=== PATIENT | male | born 1995 | race American Indian/Alaskan Native ===

== ENCOUNTER 2020-03-25 17:43 | Emergency (ER) | payer SELFPAY ==
--- NOTE | 2020-03-25 20:05 | Emergency Department Report ---
Eye Injury/Foreign Body - HPI Duration: 5 Days Eye Location: Right Severity: Mild Tetanus Status: Up to Date Eye Symptoms: Eye Pain: Yes, Eye Redness: Yes, Recalls Injury: No (Possible injury versus infection unsure occurred about 5 days ago severe pain redness swelling scant discharge of unknown), Photophobia: No ED Review of Systems ROS: Stated complaint: RT EYE DISCOMFORT Other details as noted in HPI Comment: All other systems reviewed and negative ED Past Medical Hx - Past Medical History Previous Medical History?: No - Surgical History Past Surgical History?: No - Medications Home Medications: Home Medications Medication Instructions Recorded Confirmed Last Taken Type Tobramycin [Tobrex] 1 drop OS Q6HR #1 bottle 03/25/20 Unknown Rx Eye Injury Exam - Exam General: Vital signs noted. No distress. Alert and acting appropriately. - Procedure Description Procedures done: The area was irrigated with saline and tetracaine was placed to the cotton Q-tip was utilized to remove the form of foreign body with no limitation there is some vague residual scarring to the region no obvious rust ring - Eye Procedure Alcaine Drops Administered: Yes Eye FB Removal: removal w/ cotton swab Eye Irrigated w/ Saline (ccs): 40 Critical care attestation.: If time is entered above; I have spent that time in minutes in the direct care of this critically ill patient, excluding procedure time. ED Disposition Clinical Impression: Foreign body, eye, Corneal abrasion, Red eye Disposition: DC-01 TO HOME OR SELFCARE Is pt being admited?: No Does the pt Need Aspirin: No Condition: Stable Instructions: Corneal Abrasion Prescriptions: Tobramycin [Tobrex] 1 drop OS Q6HR #1 bottle Referrals: [facility] [Provider Group] - 3-5 Days [facility] [Provider Group] - 3-5 Days ED Eye Prob EXAM - General General appearance: alert, in no apparent distress Limitations: No Limitations Head exam: Positive: normal inspection Eyelids: Normal Inspection: Left Pupils: Regular, Round: Bilateral, Reactive: Bilateral Sclera: Injection: Right Cornea: Fluorescein Uptake: Right (Middle ear foreign body at the positive to the iris area of the right eye at the area 10:00) Neck exam: Positive: normal inspection Respiratory exam: Positive: normal lung sounds bilaterally Cardiovascular Exam: Positive: regular rate Extremities exam: Positive: normal inspection Back exam: normal inspection Neurological exam: Positive: alert, CN II-XII intact Psychiatric exam: Positive: normal affect. Negative: depressed Skin exam: Positive: intact
== END 2020-03-25 21:00 | disposition home or self-care (01) ==
LOC: ED 17:43
DX: T15.91XA Foreign body on external eye, part unspecified, right eye, initial encounter (principal); S05.00XA Injury of conjunctiva and corneal abrasion without foreign body, unspecified eye, initial encounter; H57.89 Other specified disorders of eye and adnexa; Z79.899 Other long term (current) drug therapy; X58.XXXA Exposure to other specified factors, initial encounter; Y93.89 Activity, other specified; Y92.89 Other specified places as the place of occurrence of the external cause; Y99.8 Other external cause status